=== PATIENT | female | born 1960 | race Asian ===

== ENCOUNTER 2016-07-13 13:10 | Outpatient (CLI) | payer OTHER ==
--- NOTE | 2016-07-13 17:21 | DIAGNOSTIC IMAGING REPORT ---
PROCEDURE: MG BILATERAL SCREENING W/CAD INDICATION: SCREENING TECHNIQUE: Standard CC and MLO views bilaterally. Computer aided detection was used. COMPARISON: 07/28/2015, 07/22/2014, 07/15/2013 FINDINGS: Moderately dense fibroglandular tissue is present bilaterally. No developing densities, areas of architectural distortion, or suspicious microcalcifications. IMPRESSION: 1. Stable mammograms without radiographic evidence of malignancy. RESULT CODE: 1- Negative. A. A negative report should not delay biopsy if a dominant or clinically suspicious mass is present. 10-15% of cancers are not identified by x-ray. B. A negative report may reinforce clinical impression. C. Adenosis and dense breasts may obscure an underlying neoplasm. D. False positive reports average 6-10%. E.. A yearly screening mammogram is recommended. A reminder letter will be scheduled.
[2016-07-28] MEDS ORDERED: HYDROCHLOROTHIA25 MG PO (16:52)
[2016-07-28] MEDS ORDERED: COQ1030 MG PO (16:52)
[2016-07-28] MEDS ORDERED: GLUCOSAMINE CHONDROI PO (16:53)
[2016-07-28] MEDS ORDERED: TURMERIC CURCUMIN PO (16:54)
[2016-07-28] MEDS ORDERED: FISH OIL1000 M1 PO (16:55)
[2016-07-28] MEDS ORDERED: VITAMIN D-31000 UNIT PO (16:56)
[2016-07-28] MEDS ORDERED: SUPER B COMPLEX MAXI PO (16:57)
[2016-07-28] MEDS ORDERED: CALCIUM500 M1 PO (16:58)
[2016-08-02] MEDS ORDERED: HYCET1 ML PO (08:27)
== END 2016-07-13 23:00 ==
LOC: MAM SRH 13:10
DX: Z12.31 Encounter for screening mammogram for malignant neoplasm of breast (principal)